=== PATIENT | female | born 1955 | race Caucasian/White ===

== ENCOUNTER 2017-03-14 11:51 | Day surgery (SDC) | payer OTHER ==
[~2017-03-14] VITALS: Ht 165.1 cm; Wt 88.6 kg
[2017-03-14 13:08] VITALS: Ht 165.1 cm; Wt 88.6 kg
[2017-03-14] MEDS ORDERED: LOSA25TA5 PO (13:16)
[2017-03-14] MEDS ORDERED: MTF1000T PO (13:16)
[2017-03-14] MEDS ORDERED: ASPI-664 PO (13:17)
[2017-03-14 13:48] VITALS: BP 153/77; PULSE 74; RESP 18
[2017-03-14] MEDS ORDERED: PROPOFOL 40 ML ONE (13:55)
[2017-03-14 15:07] VITALS: BP 160/83; PULSE 68; RESP 15
--- NOTE | 2017-03-14 15:21 | GILP ---
DATE OF PROCEDURE: 03/14/2017 NAME OF PROCEDURES: 1. Esophagogastroduodenoscopy and biopsy. 2. Colonoscopy. SURGEON: Marlene Fitzpatrick MD PREOPERATIVE DIAGNOSES: 1. Abdominal pain. 2. Chronic heartburn. 3. Screening colonoscopy. POSTOPERATIVE DIAGNOSES: 1. Gastroesophageal reflux disease. 2. Gastritis with erosions. 3. Small gastric polyps. 4. Gastric mucosal biopsies were taken for Helicobacter pylori test. 5. Colonoscopy all the way to the cecum. 6. Internal hemorrhoids. 7. No colon neoplasm was identified. INDICATION FOR THE PROCEDURE: Ms. Josefa Kuo is a 61-year-old female patient who had upper abdomin al pain and chronic heartburn, not responding to therapy. She also needed screening colonoscopy. The procedures and possible complications were well explained to the patient. The patient understoo d and consented to the procedure. DESCRIPTION OF PROCEDURE: Under the influence of anesthesia, the gastroscope was carefully introduc ed into the esophagus and under direct vision, it was advanced to the stomach and through the pyloru s into the duodenal bulb and descending duodenum. FINDINGS: ESOPHAGUS: The patient had gastroesophageal reflux disease, but the esophageal mucosa was normal. STOMACH: The patient had gastritis. Gastric mucosal biopsies were taken for H. pylori test. The p atient also had small gastric polyps. DUODENUM: Normal. The colonoscope was carefully introduced in the rectum and under direct vision, it was advanced all the way to the cecum. FINDINGS: The patient had internal hemorrhoids. No neoplasm was identified. She tolerated the procedures very well and there was no complication from the procedures. At the en d of the procedures, she was awake with stable vital signs and she was discharged home to the care o f her family. IMPRESSION: 1. Gastroesophageal reflux disease. 2. Gastritis with erosions. 3. Gastric mucosal biopsies were taken for Helicobacter pylori test. 4. Colonoscopy all the way to the cecum. 5. Small internal hemorrhoids. 6. No colon neoplasm was identified. PLAN: 1. Omeprazole 40 mg p.o. q.a.m. 2. Zantac 300 mg p.o. at bedtime. 3. Await H. pylori test report. 4. Screening colonoscopy in 10 years. Dictated By: MARLENE DAVIS/JOSE ARMANDO Conf#: [id number] DID#: [id number]
== END 2017-03-14 15:55 | disposition home or self-care (01) ==
LOC: GIL 11:51
PROVIDERS: ATTEND Internal Medicine Gastroenterology
DX: Z12.11 Encounter for screening for malignant neoplasm of colon (principal); K29.60 Other gastritis without bleeding; K21.9 Gastro-esophageal reflux disease without esophagitis; K64.8 Other hemorrhoids; B96.81 Helicobacter pylori [H. pylori] as the cause of diseases classified elsewhere; K31.7 Polyp of stomach and duodenum; E11.9 Type 2 diabetes mellitus without complications; I10 Essential (primary) hypertension; E66.9 Obesity, unspecified; Z68.32 Body mass index [BMI] 32.0-32.9, adult
CPT/HCPCS: 43239; 45378; 82962; 87081; Z7610